=== PATIENT | female | born 1970 | race Caucasian/White ===

== ENCOUNTER → 2018-02-18 | Outpatient (CLI) | payer BC, OTHER ==
[~2018-02-18] VITALS: Ht 162.6 cm; Wt 61.2 kg
[~2018-02-18] MED LIST: NABUMETONE 500500 M1 PO; PREDNISONE 10 M10 MG PO; PROPRANOLOL 1010 MG PO; ZYRTEC10 M5 PO
[2018-02-18 10:45] VITALS: BP 92/67
== END ==
LOC: PAIN 10:02
DX: M54.2 Cervicalgia (principal); M54.5 Low back pain; R42 Dizziness and giddiness; M19.90 Unspecified osteoarthritis, unspecified site